=== PATIENT | male | born 1985 | race Caucasian/White ===

== ENCOUNTER 2024-02-26 07:08 | Outpatient (OUT) | payer OTHER, SELFPAY ==
[2024-02-26 07:44] LABS: Basophils Percent Auto 0.5 % (0.2-2.0); Eosinophils Absolute Auto 0.1 10^3/uL (0.0-0.7); Eosinophils Percent Auto 1.9 % (0.9-7.0); Hematocrit 42.1 % (42.0-54.0); Hemoglobin 14.1 g/dL (14.0-18.0); Immature Granulocytes Abs Auto 0.02 10^3/uL (0.00-0.03); Immature Granulocytes Pct Auto 0.3 % (0.0-0.5); Lymphocytes Absolute Auto 2.2 10^3/uL (1.2-3.8); Lymphocytes Percent Auto 28.9 % (20.5-60.0); Mean Corpuscular HGB Conc 33.5 g/dL (29.9-35.2); Mean Corpuscular Hemoglobin 28.8 pg (25.9-34.0); Mean Corpuscular Volume 85.9 fL (80.0-94.0); Mean Platelet Volume 11.2 fL (9.5-13.5); Monocytes Absolute Auto 0.7 10^3/uL (0.3-0.8); Monocytes Percent Auto 8.7 % (1.7-12.0); Neutrophils Absolute Auto 4.5 10^3/uL (1.4-6.5); Neutrophils Percent Auto 59.7 % (43.0-75.0); Platelet Count 256 10^3/uL (150-450); Red Cell Distribution Width 12.3 % (11.0-15.0); White Blood Count 7.6 10^3/uL (4.0-11.0)
[2024-02-26 08:01] LABS: Alanine Aminotransferase 76 U/L (16-63); Albumin Globulin Ratio 1.2; Alkaline Phosphatase 76 U/L (46-116); Anion Gap 11.5; Aspartate Amino Transferase 24 U/L (15-37); BUN Creatinine Ratio 12.8; Bilirubin Total 0.5 mg/dL (0.2-1.0); Calcium 9.2 mg/dL (8.5-10.1); Carbon Dioxide 29.5 mmol/L (21.0-32.0); Chloride 102 mmol/L (98-107); Chol HDL Ratio 3.2; Cholesterol 163 mg/dL (<=200); Estimated GFR (African America >60 (>=60); Estimated GFR (Non-African Ame >60 (>=60); Globulin 3.4 g/dL; Glucose 104 mg/dL (74-106); HDL Cholesterol 51 mg/dL (40-60); LDL Cholesterol Calculated 100.4 mg/dL; Sodium 139 mmol/L (136-145); Thyroid Stimulating Hormone 1.266 uIU/mL (0.358-3.740); Total Protein 7.4 g/dL (6.4-8.2); Triglycerides 58 mg/dL (<=150); VLDL CHOLESTEROL 11.6 mg/dL
== END 2024-02-26 07:09 | disposition home or self-care (01) ==
LOC: LAB 07:12
PROVIDERS: PCP Internal Medicine; Visit Provider Internal Medicine
DX: Z00.00 Encounter for general adult medical examination without abnormal findings (principal)
CPT/HCPCS: 36415; 80053; 80061; 84443; 85025

== ENCOUNTER 2025-03-21 06:59 | Outpatient (OUT) | payer OTHER, SELFPAY ==
--- OUTSIDE RECORDS SUMMARY | 2013-02-03 05:39 | XMS_ITS | Continuity of Care Document ---
Author Organization [facility] Address [address] [place] [address] Phone Care Team Providers Care Telesales Team Leader Name Role Phone MarciConstantine Unavailable Unavailable Allergies, [...] Diagnoses Date Provider Providers Copied on Encounter [facility], [address] [place] [address], [id number], [place] tel:[phone] [facility] No Information Marci Fitch. [address] [place] [address], [id number], [place]. tel:[phone] PREV VISIT, NEW, AGE 12-17 [facility], [address] [place] [address], [id number], [place] tel:[phone] [facility] STI male (chief complaint) Screening examination for venereal disease Marci Fitch. [address] [place] [address], [id number], [place]. tel:[phone] Family History Family Member Type Diagnosis Age At Onset No Information Payers Payer name Insurance type Covered republican ID Authoriza tion(s) No Information Social History [...]
--- OUTSIDE RECORDS SUMMARY | 2025-03-21 07:00 | XMS_ITS | Clinical Summary ---
Author Organization [facility] Address [address] [place] [address] Care Team Providers Care Hair Stylist Name Role Phone Unavailable Primary Care Provider Unavailabl e Social History Tobacco Use Types Packs/Day Years Used Date Smoking Tobacco: Never Assessed Sex and Gender Information Value Date Recorded Sex Assigned at Not on file Legal Sex Male 7:22 PM EDT Gender Identity Not on file Sexual Orientation Not on file Last Filed Vital Signs Vital Sign Reading Time Taken Comments Blood Pressure 122/70 07/20/2020 12:00 PM EDT Pulse - - Temperature - - Respiratory Rate - - Oxygen Saturation - - Inhaled Oxygen Concentration - - Weight 97.1 kg (214 lb) 07/20/2020 12:00 PM EDT Height 175.3 cm (5' 9 ) 07/20/2020 12:00 PM EDT Body Mass Index 31.6 07/20/2020 12:00 PM EDT Plan of Treatment Not on file
--- OUTSIDE RECORDS SUMMARY | 2025-03-21 07:01 | XMS_ITS | CCD ---
Author Organization [facility] Care Team Providers Care Weight Loss Counselor Name Role Phone DR DESHAUN CRISOSTOMO Admitting Unavailable KRANTHI, DR DAWSON Attending Unavailable JACKIE MÉNDEZ Primary Care Unavailable KRANTHI, DR DAWSON Consulting Unavailable KRANTHI, DR DAWSON Admitting Unavailable KRANTHI, DR DAWSON Attending Unavailable KRANTHI, DR DAWSON Primary Care Unavailable KRANTHI, DR DAWSON Consulting Unavailable Mary Snell Unavailable Deshaun Crisostomo Unavailable Allergies Allergy Classification Reported Allergen(s) Allergy Type Date of Onset Reaction(s) Facility (1 source) Penicillin Drug Allergy 0 [facility] (5 sources) Penicillin V Drug Allergy 4 rash [facility] (1 source) Penicillin G Benzathine Allergy to substance 4 Unknown Reaction [facility] (1 source) Penicillins Allergy to substance 4 Unknown Reaction [facility] Medications Current Medications Medication Drug Class(es) Dates Sig (Normalized) Sig (Original) azithromycin 250 mg oral tablet (4 sources) Macrolide Antimicrobial Start: 10-21-2022 Azithromycin 250 MG 2 tablet on the first day, then 1 tablet daily for 4 days Orally Once a day for 5 day(s) Oct, Active LORazepam 0.5 mg oral tablet (5 sources) Benzodiazepine Start: 02-12-2024 take 0.5 mg by mouth once daily Lorazepam Active 0.5 MG PO Daily February 12, 2024 12:00am Start: 11-29-2022 take 1 tablet by ana paula once daily as needed for anxiety LORazepam 0.5 MG 1 Tablet Orally Once a day, as needed for anxiety Nov, Active predniSONE 20 mg oral tablet (4 sources) Start: 10-21-2022 take 1 tablet by mouth every twelve hours predniSONE 20 MG 1 tablet Orally 2 times a day for 5 day(s) 02 August, 2023 Active 24 hr venlafaxine 150 mg extended release oral capsule (6 sources) Serotonin and Norepinephrine Reuptake Inhibitor Start: 02-12-2024 take 1 capsule by mouth once daily at mealtime Venlafaxine Active 0 .ROUTE .COMPLEX February 12, 2024 3:57pm TAKE 1 CAPSULE BY MOUTH ONCE DAILY WITH FOOD Start: 02-12-2024 End: 02-12-2024 take 150 mg by mouth once daily Venlafaxine Discontinu ed 150 MG PO Daily February 12, 2024 12:00am February 12, 2024 3:57pm Start: 11-29-2022 take 1 capsule by mo uth once in the morning Venlafaxine HCl ER 75 MG 1 Capsule Orally q am for 30 days Nov, Active Start: 11-29-2022 take 1 capsule by mo uth once in the morning Venlafaxine HCl ER 37.5 MG 1 Capsule Orally q am for 30 day(s) Nov, Active take 1 capsule by mo uth every twenty-four hours Venlafaxine HCl ER 150 MG 1 capsule with food Orally Once a day for 30 days Active Completed/Discontinued Medications Medication Drug Class(es) Dates Sig (Normalized) Sig (Original) methylPREDNISolone (8 sources) Corticosteroid Start: 06-03-2016 Depo-Medrol 80 mg May, 80 mg Start: 03-26-2015 Depo-Medrol 40 mg Mar, 1.50 mL Problems Active Problems Problem Classification Problem Date Documented Da te Episodic/Chronic Abdominal pain (5 sources) Abdominal pain; Translations: [Unspecified abdominal pain] 10-01-2023 Episodic Anxiety disorders (12 sources) Generalized anxiety disorder; Translations: [Generalized anxiety disorder] Chronic Esophageal disorders (4 sources) Erosive esophagitis; Translations: [Ulcer of esophagus without bleeding] Chronic Gastritis and duodenitis (4 sources) Duodenitis; Translations: [Duodenitis without bleeding] Episodic Miscellaneous mental health disorders (4 sources) Disorders of initiating and maintaining sleep; Translations: [Insufficient sleep syndrome] Chronic Mood disorders (9 sources) Recurrent major depressive episodes, mild ; Translations: [Major depressive disorder, recurrent, mild] Chronic Other nervous system disorders (4 sources) Circadian rhythm sleep disorder of shift work type; Translations: [Circadian rhythm sleep disorder, 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 Other nutritional; endocrine; and metabolic disorders (4 sources) Obese class I; Translations: [Obesity, unspecified] Chronic Other nutritional; endocrine; and metabolic disorders (2 sources) Obesity, unspecified; Translations: [Obesity, unspecified] Chronic Other nutritional; endocrine; and metabolic disorders (1 source) Body mass index 30+ - obesity; Translations: [Body mass index (BMI) 32.0-32.9, adult] Chronic Other nutritional; endocrine; and metabolic disorders (2 sources) Obesity; Translations: [Other obesity due to excess calories] 02-24-2024 Chronic Other nutritional; endocrine; and metabolic disorders (1 source) Other obesity due to excess calories Chronic Other nutritional; endocrine; and metabolic disorders (1 source) Body mass index (BMI) 32.0-32.9, adult Chronic Other nutritional; endocrine; and metabolic disorders (4 sources) Increased body mass index; Translations: [Body mass index (BMI) 29.0-29.9, adult] Episodic Other upper respiratory infections (2 sources) Acute pharyngitis, unspecified; Translations: [Streptococcal pharyngitis] Episodic Residual codes; unclassified (4 sources) Daytime somnolence; Translations: [Other hypersomnia] Chronic Residual codes; unclassified (4 sources) Frequent night waking; Translations: [Insomnia, unspecified] Episodic Residual codes; unclassified (4 sources) Hypnagogic hallucinations; Translations: [Other hallucinations] Episodic Unclassified (3 sources) CONTACT W/AND (SUSP) EXPOS COVID-19; Translations: [CONTACT W/AND (SUSP) EXPOS COVID-19] Onset: 11-21-2021 Past or Other Problems Problem Classification Problem Date Documented Da te Episodic/Chronic Unclassified (1 source) CONTACT W/AND (SUSP) EXPOS COVID-19; Translations: [CONTACT W/AND (SUSP) EXPOS COVID-19] Onset: 11-19-2021 Results Test Name Value Interpretation Reference Range Facil ity Quick Strepon 10-21-2022 S. pyogenes Org specific cx Ql (Throat) Positive [facility] Other Quick Strep [facility] Other Covid-19 PCR (CVDTB)on 10-22 SARS-CoV-2 (COVID-19) RNA ILEANA+probe Ql (Unsp spec) Not detected Normal NOT DETECTED [facility] Comment on above: Result Comment: This test is not yet approved or cleared by the [place] FDA. When there are no FDA-approved or cleared tests available, and other criteria are met, FDA can make tests available under an emergency access mechanism called an Emergency Use Authorization (EUA). The EUA for this test is supported by the [place] of Health and Human Service's (HHS's) declaration that circumstances exist to justify the emergency use of in vitro diagnostics for the detection and/or diagnosis of the virus that causes COVID-19. This EUA will remain in effect (meaning this test can be used) for the duration of the COVID-19 declaration justifying emergency of IVDs, unless it is terminated or revoked by FDA (after which the test may no longer be used). When diagnostic testing is negative, the possibility of a false negative should be considered in the context of a patient's recent exposures and the presence of clinical signs and symptoms consistent with SARS-CoV-2. Performed By: #### C VDTBH #### [facility] [address] [place] [address] Dr. Hollie Guerra CBC AUTO DIFFon 10-31-2021 BASO # 0.0 103/ul Normal 0.0-0.1 [facility] Comment on above: Performed By: #### C BC #### [facility] [address] [place] [address] Dr. Hollie Guerra Basophils/100 WBC (Bld) 0.4 % Normal 0.2-2.0 [facility] Comment on above: Performed By: #### C BC #### [facility] [address] [place] [address] Dr. Hollie Guerra EO # 0.1 103/ul Normal 0.0-0.7 [facility] Comment on above: Performed By: #### C BC #### [facility] [address] [place] [address] Dr. Hollie Guerra Eosinophils/100 WBC (Bld) 1.7 % Normal 0.9-7.0 [facility] Comment on above: Performed By: #### C BC #### [facility] [address] [place] [address] Dr. Hollie Guerra Erythrocyte distribution width (RBC) [Ratio] 12.7 % Normal 11.0-15.0 [facility] Comment on above: Performed By: #### C BC #### [facility] [address] [place] [address] Dr. Hollie Guerra Hematocrit (Bld) [Volume fraction] 44.5 % Normal 42.0-54.0 [facility] Comment on above: Performed By: #### C BC #### [facility] [address] [place] [address] Dr. Hollie Guerra Hemoglobin (Bld) [Mass/Vol] 14.8 g/dL Normal 14.0-18.0 [facility] Comment on above: Performed By: #### C BC #### [facility] [address] [place] [address] Dr. Hollie Guerra IG # 0.02 10e3/ul Normal 0.00-0.03 [facility] Comment on above: Performed By: #### C BC #### [facility] [address] [place] [address] Dr. Hollie Guerra IG % 0.3 % Normal 0.0-0.5 [facility] Comment on above: Performed By: #### C BC #### [facility] [address] [place] [address] Dr. Hollie Guerra LYMPH # 1.7 103/ul Normal 1.2-3.8 [facility] Comment on above: Performed By: #### C BC #### [facility] [address] [place] [address] Dr. Hollie Guerra Lymphocytes/100 WBC (Bld) 24.5 % Normal 20.5-60.0 [facility] Comment on above: Performed By: #### C BC #### [facility] [address] [place] [address] Dr. Hollie Guerra MANUAL DIFF REQ NO Normal [facility] Comment on above: Performed By: #### C BC #### [facility] [address] [place] [address] Dr. Hollie Guerra MCH (RBC) [Entitic mass] 28.8 pg Normal 25.9-34.0 [facility] Comment on above: Performed By: #### C BC #### [facility] [address] [place] [address] Dr. Hollie Guerra MCHC (RBC) [Mass/Vol] 33.3 g/dL Normal 29.9-35.2 [facility] Comment on above: Performed By: #### C BC #### [facility] [address] [place] [address] Dr. Hollie Guerra MCV (RBC) [Entitic vol] 86.7 fL Normal 80.0-94.0 [facility] Comment on above: Performed By: #### C BC #### [facility] [address] [place] [address] Dr. Hollie Guerra MONO # 0.6 103/ul Normal 0.3-0.8 [facility] Comment on above: Performed By: #### C BC #### [facility] [address] [place] [address] Dr. Hollie Guerra Monocytes/100 WBC (Bld) 8.2 % Normal 1.7-12.0 [facility] Comment on above: Performed By: #### C BC #### [facility] [address] [place] [address] Dr. Hollie Guerra NEUT # 4.5 103/ul Normal 1.4-6.5 [facility] Comment on above: Performed By: #### C BC #### [facility] [address] [place] [address] Dr. Hollie Guerra Neutrophils/100 WBC (Bld) 64.9 % Normal 43.0-75.0 [facility] Comment on above: Performed By: #### C BC #### [facility] [address] [place] [address] Dr. Hollie Guerra Platelet mean volume (Bld) [Entitic vol] 10.9 fL Normal 9.5-13.5 [facility] Comment on above: Performed By: #### C BC #### [facility] [address] [place] [address] Dr. Hollie Guerra PLT 269 103/ul Normal 150-450 [facility] Comment on above: Performed By: #### C BC #### [facility] [address] [place] [address] Dr. Hollie Guerra RBC 5.13 106/ul Normal 4.70-6.10 [facility] Comment on above: Performed By: #### C BC #### [facility] [address] [place] [address] Dr. Hollie Guerra WBC 7.0 103/ul Normal 4.0-11.0 [facility] Comment on above: Performed By: #### C BC #### [facility] [address] [place] [address] Dr. Hollie Guerra LIPID PROFILEon 10-31-2021 CHOL-HDL RATIO NORM SEE BELOW Normal [facility] Comment on above: Result Comment: 3.3 - 4.4 LOW RISK 4.4 - 7.1 AVERAGE RISK 7.1 - 11.0 MODERATE RISK >11.0 HIGH RISK Performed By: #### T SH, CMP, LIPID #### [facility] [address] [place] [address] Dr. Hollie Guerra Cholesterol [Mass/Vol] 134 mg/dL Normal <=200 [facility] Comment on above: Performed By: #### T SH, CMP, LIPID #### [facility] [address] [place] [address] Dr. Hollie Guerra Cholesterol in HDL [Mass/Vol] 46 mg/dL Normal [facility] Comment on above: Performed By: #### T SH, CMP, LIPID #### [facility] [address] [place] [address] Dr. Hollie Guerra Cholesterol in LDL [Mass/Vol] 75.6 mg/dL Normal [facility] Comment on above: Performed By: #### T SH, CMP, LIPID #### [facility] [address] [place] [address] Dr. Hollie Guerra Cholesterol.total/ Cholesterol in HDL [Mass ratio] 2.9 {ratio} Normal [facility] Comment on above: Performed By: #### T SH, CMP, LIPID #### [facility] [address] [address] [address] Hollie Guerra HDL NORMAL > or = 60 mg/dl - LOW CARDIOVASCULAR RISK <40 mg/dl - HIGH CARDIOVASCULAR RISK Normal [facility] Comment on above: Performed By: #### T SH, CMP, LIPID #### [facility] [address] [address] [address] Hollie Guerra LDL CALC NORMAL SEE BELOW Normal [facility] Comment on above: Result Comment: <100 mg/dl OPTIMAL 100 - 129 mg/dl NEAR OR ABOVE OPTIMAL 130 - 159 mg/dl BORDERLINE HIGH 160 - 189 mg/dl HIGH >190 mg/dl VERY HIGH Performed By: #### T SH, CMP, LIPID #### [facility] [address] [place] [address] Dr. Hollie Guerra Triglyceride [Mass/Vol] 62 mg/dL Normal <=150 [facility] Comment on above: Performed By: #### T SH, CMP, LIPID #### [facility] [address] [address] [address] Hollie Guerra VLDL CALC 12.4 mg/dL Normal [facility] Comment on above: Performed By: #### T SH, CMP, LIPID #### [facility] [address] [place] [address] Dr. Hollie Guerra PROF 14(COMP METB)on 022 Albumin [Mass/Vol] 4.2 g/dL Normal 3.5-5.0 [facility] Comment on above: Performed By: #### T SH, CMP, LIPID #### [facility] [address] [place] [address] Dr. Hollie Guerra Albumin/Globulin [Mass ratio] 1.3 {ratio} Normal [facility] Comment on above: Performed By: #### T SH, CMP, LIPID #### [facility] [address] [place] [address] Dr. Hollie Guerra ALP [Catalytic activity/Vol] 71 U/L Normal 38-126 [facility] Comment on above: Performed By: #### T SH, CMP, LIPID #### [facility] [address] [place] [address] Dr. Hollie Guerra ALT [Catalytic activity/Vol] 68 U/L Normal 21-72 [facility] Comment on above: Performed By: #### T SH, CMP, LIPID #### [facility] [address] [place] [address] Dr. Hollie Guerra Anion gap [Moles/Vol] 10.0 mmol/L Normal [facility] Comment on above: Performed By: #### T SH, CMP, LIPID #### [facility] [address] [place] [address] Dr. Hollie Guerra AST [Catalytic activity/Vol] 22 U/L Normal 17-59 [facility] Comment on above: Performed By: #### T OJ CMP, LIPID #### [facility] [address] [place] [address] Dr. Hollie Guerra Bilirubin [Mass/Vol] 0.3 mg/dL Normal 0.2-1.3 [facility] Comment on above: Performed By: #### T OJ, CMP, LIPID #### [facility] [address] [place] [address] Dr. Hollie Guerra Calcium [Mass/Vol] 9.2 mg/dL Normal 8.4-10.2 [facility] Comment on above: Performed By: #### T OJ, CMP, LIPID #### [facility] [address] [place] [address] Dr. Hollie Guerra Chloride [Moles/Vol] 105 mmol/L Normal 98-107 [facility] Comment on above: Performed By: #### T OJ, CMP, LIPID #### [facility] [address] [place] [address] Dr. Hollie Guerra CO2 [Moles/Vol] 29.2 mmol/L Normal 22.0-30.0 [facility] Comment on above: Performed By: #### T SH, CMP, LIPID #### [facility] [address] [place] [address] Dr. Hollie Guerra Creatinine [Mass/Vol] 0.75 mg/dL Normal 0.66-1.25 [facility] Comment on above: Performed By: #### T SH, CMP, LIPID #### [facility] [address] [address] [address] Hollie Guerra EGFR-AF ENGLISH >60 Normal >=60 [facility] Comment on above: Performed By: #### T SH, CMP, LIPID #### [facility] [address] [address] [address] Hollie Guerra EGFR-NON AF ENGLISH >60 Normal >=60 [facility] Comment on above: Performed By: #### T SH, CMP, LIPID #### [facility] [address] [address] [address] Hollie Guerra Globulin (S) [Mass/Vol] 3.2 g/dL Normal [facility] Comment on above: Performed By: #### T SH, CMP, LIPID #### [facility] [address] [place] [address] Dr. Hollie Guerra Glucose [Mass/Vol] 93 mg/dL Normal 74-106 [facility] Comment on above: Performed By: #### T SH, CMP, LIPID #### [facility] [address] [address] [address] Hollie Guerra Potassium [Moles/Vol] 4.2 mmol/L Normal 3.4-5.0 [facility] Comment on above: Performed By: #### T SH, CMP, LIPID #### [facility] [address] [address] [address] Hollie Guerra Protein [Mass/Vol] 7.4 g/dL Normal 6.1-8.2 [facility] Comment on above: Performed By: #### T SH, CMP, LIPID #### [facility] [address] [address] [address] Hollie Guerra Sodium [Moles/Vol] 140 mmol/L Normal 137-145 [facility] Comment on above: Performed By: #### T SH, CMP, LIPID #### [facility] [address] [address] [address] Hollie Guerra Urea nitrogen [Mass/Vol] 12.0 mg/dL Normal 9.0-20.0 [facility] Comment on above: Performed By: #### T SH, CMP, LIPID #### [facility] [address] [address] [address] Hollie Guerra Urea nitrogen/Creatinin e [Mass ratio] 16.0 mg/mg Normal [facility] Comment on above: Performed By: #### T SH, CMP, LIPID #### [facility] [address] [address] [address] Hollie Guerra TSHon 10-31-2021 TSH 1.143 uIU/mL Normal 0.470-4.680 [facility] Comment on above: Performed By: #### T SH, CMP, LIPID #### [facility] [address] [address] [address] Hollie Guerra TSH RANGE SEE BELOW Normal [facility] Comment on above: Result Comment: <0.3 4 UIU/ml HYPERTHYROID 0.34-5.60 UIU/ml EUTHYROID >5.60 UIU/ml HYPOTHYROID Performed By: #### T SH, CMP, LIPID #### [facility] [address] [address] [address] Hollie Guerra Vital Signs Date Time Vital Sign Value Performing Clinician Facility 02-24-2024 13:36-0400 Body height 174.63 cm [facility] 02-24-2024 13:36-0400 Body mass index (BMI) [Ratio] 35.5 kg/m2 [facility] 02-24-2024 13:36-0400 Body weight 108.46 kg [facility] 02-24-2024 13:36-0400 Diastolic blood pressure 80 mm[Hg] [facility] 02-24-2024 13:36-0400 Heart rate 80 /min [facility] 02-24-2024 13:36-0400 Respiratory rate 12 /min [facility] 02-24-2024 13:36-0400 Systolic blood pressure 119 mm[Hg] [facility] 03-03-2023 16:15-0400 Body height 174.63 cm Deshaun Ball Other [facility] Other 03-03-2023 16:15-0400 Body mass index (BMI) [Ratio] 32.6 kg/m2 Deshaun Ball Other [facility] Other 03-03-2023 16:15-0400 Body weight 99.43 kg Deshaun Ball Other [facility] Other 03-03-2023 16:15-0400 Diastolic blood pressure 82 mm[Hg] Deshaun Ball Other [facility] Other 03-03-2023 16:15-0400 Respiratory rate 12 /min Deshaun Ball Other [facility] Other 03-03-2023 16:15-0400 Systolic blood pressure 129 mm[Hg] Deshaun Ball Other [facility] Other 11-29-2022 10:00-0500 Body height 174.63 cm Deshaun Ball Other [facility] Other 11-29-2022 10:00-0500 Body mass index (BMI) [Ratio] 33.2 kg/m2 Deshaun Ball Other [facility] Other 11-29-2022 10:00-0500 Body weight 101.24 kg Deshaun Ball Other [facility] Other 11-29-2022 10:00-0500 Diastolic blood pressure 76 mm[Hg] Deshaun Ball Other [facility] Other 11-29-2022 10:00-0500 Respiratory rate 12 /min Deshaun Ball Other [facility] Other 11-29-2022 10:00-0500 Systolic blood pressure 118 mm[Hg] Deshaun Ball Other [facility] Other 10-21-2022 10:15-0500 Body height 174.63 cm Mary Snell Other [facility] Other 10-21-2022 10:15-0500 Body mass index (BMI) [Ratio] 33.91 kg/m2 Mary Snell Other [facility] Other 10-21-2022 10:15-0500 Body temperature 98.4 [degF] Mary Snell Other [facility] Other 10-21-2022 10:15-0500 Body weight 103.42 kg Mary Snell Other [facility] Other 10-21-2022 10:15-0500 Diastolic blood pressure 77 mm[Hg] Mary Snell Other [facility] Other 10-21-2022 10:15-0500 Respiratory rate 18 /min Mary Snell Other [facility] Other 10-21-2022 10:15-0500 SaO2% (BldA) [Mass fraction] 99 % Mary Snell Other [facility] Other 10-21-2022 10:15-0500 Systolic blood pressure 116 mm[Hg] Mary Alis Other [facility] Other Encounters Encounter Date Encounter Type Care Provider Facility Start: 03-09-2025 ambulatory Facility:[facility] Start: 02-24-2024 End: 02-24-2024 ambulatory [facility] Work Phone: Start: 02-24-2024 End: 02-24-2024 Encounter for general adult medical examination without abnormal findings [facility] Start: 02-24-2024 End: 02-24-2024 Patient encounter procedure [facility] Work Phone: Start: 02-12-2024 Non-patient / Non-visit [facility] [employer] Work Phone: Start: 03-03-2023 End: 03-03-2023 ambulatory Deshaun Crisostomo Other [facility] Other Start: 03-03-2023 Office outpatient vi sit 15 minutes Deshaun Crisostomo [facility] Start: 12-30-2022 End: 12-30-2022 ambulatory Deshaun Crisostomo Other [facility] Other Start: 12-30-2022 Telephone encounter Deshaun Crisostomo [facility] Start: 11-29-2022 End: 11-29-2022 ambulatory Deshaun Crisostomo Other [facility] Other Start: 11-29-2022 Office outpatient vi sit 15 minutes Deshaun Crisostomo [facility] Start: 10-21-2022 End: 10-21-2022 ambulatory Mary Snell Other [facility] Other Start: 10-21-2022 Office outpatient vi sit 25 minutes Maryga Snell [facility] Start: 11-19-2021 End: 11-19-[address] DESHAUN CRISOSTOMO Facility:[facility] Start: 11-02-2021 Encounter for genera l adult medical examination without abnormal findings DR DESHAUN CRISOSTOMO [facility] Start: 10-31-2021 End: 11-01-[address] DESHAUN CRISOSTOMO Facility:[facility] Start: 10-31-2021 End: 11-01-2021 Encounter for general adult medical examination without abnormal findings DR DESHAUN CRISOSTOMO Facility:[facility] Plan of Treatment Date Care Activity Detail Author Comprehensive metabo lic 2000 panel - Serum or Plasma [facility] enter [facility] Payers Date Payer Category Payer Self-pay [id number] 1985 Unknown [id number] 1987 Unknown [id number] 1987 Unknown [id number] 1959 Unknown [id number] Private Health Insurance [facility] [id number] Unknown [place] BC/BS [id number] Social History Date Type Detail Facility Unknown if ever smoked [facility] Other Sex Assigned At Sex Assigned At Bir th [facility] Other Start: 02-12-2024 Tobacco smoking status [facility] Never smoked tobacco (finding) [facility] Start: 1985 Sex Assigned At Male F [facility] Evaluation note 03-03-2023 Note Date & Type Note Facility 03-03-2023 Evaluation note Encounter Date Diagnosis Assessment Notes February, DEMARCO (generalized anxiety disorder) (ICD-10 - F41.1) Healthy diet, exercise and keep active. Increasing Effexor to 150mg qd Keep Ativan to 1-2 as needed. February, Other obesity due to excess calories (ICD-10 - E66.09) This patient has been instructed on a low-fat, high-fiber diet. They are instructed to reduce calories, portion sizes and snacks. It is recommended that they exercise for 30 minutes, 3-5 times weekly. February, Mild episode of recurrent major depressive disorder (ICD-10 - F33.0) Improved symptoms w low dose Effexor. Increase to 150mg qd and monitor for now. Job dissatisfactio n: may need new job February, Body mass index [BMI] 32.0-32.9, adult (ICD-10 - Z68.32) [facility] Other Evaluation note 12-30-2022 Note Date & Type Note Facility 12-30-2022 Evaluation note Encounter Date Diagnosis Assessment Notes Dec, Mild episode of recurrent major depressive disorder (ICD-10 - F33.0) [facility] Other Evaluation note 11-29-2022 Note Date & Type Note Facility 11-29-2022 Evaluation note Encounter Date Diagnosis Assessment Notes Nov, DEMARCO (generalized anxiety disorder) (ICD-10 - F41.1) Healthy diet and exercise. Initiate Effexor w/ Ativan for breakthrough anxiety Nov, Obesity (BMI 30.0-34.9) (ICD-10 - E66.9) This patient has been instructed on a low-fat, high-fiber diet. They are instructed to reduce calories, portion sizes and snacks. It is recommended that they exercise for 30 minutes, 3-5 times weekly. Nov, Mild episode of recurrent major depressive disorder (ICD-10 - F33.0) Healthy diet, exercise and keep active. Initiate Effexor [facility] Other Evaluation note 10-21-2022 Note Date & Type Note Facility 10-21-2022 Evaluation note Encounter Date Diagnosis Assessment Notes Oct, Sore throat (ICD-10 - J02.9) Oct, Strep pharyngitis (ICD-10 - J02.0) Pharyngitis/to nsillopharyngi tis: adult home care material was printed Drink plenty fluids, get plenty of rest. Take the Zithromax and prednisone as prescribed until gone. Off work today and tomorrow. Follow-up with your family physician if no improvement in 2 to 3 days. 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 Medical History Hypnagogic hallucinations Medical History Abdominal pain Medical History Erosive esophagitis Medical History Duodenitis Medical History Body mass index (BMI ) of 29.0 to 29.9 in adult Medical History Anxiety with depression Surgical History EGD 11/2017 Surgical History COLONOSCOPY 11/2017 Surgical History appendectomy Hospitalization History SEE SURGICAL HX [facility] Other Summary Purpose Family History No Family History Records Found Relationship Condition Age at Onset Recorded Date/T althea family member Diabetes mellitus Unknown brother Neoplasm of brain Unknown father Unknown grandparent Heart disease Unknown grandparent Diabetes mellitus Unknown Heart disease Unknown Not Specified Malignant neoplasm Unknown Unknown Advance Directives No Advanced Directives Records Found Advance Directive Response Recorded Date/ Time Advance Directives No November 12, 2017 8:25pm Chief Complaint and Reason for Visit Chief Complaint Amb Documentation Wellness Reason for Visit DEMARCO (generalized anx iety disorder) Major depression Obesity Wellness examination Additional Source Comments (unrecognized sect ion and content) No Status Records FoundNo Status Records Found INFORMATION SOURCE (unrecogn ized section and content) DATE CREATED AUTHOR 11/22/2021 [facility] DATE CREATED AUTHOR AUTHOR'S ORGANIZ ATION 03/16/2025 [facility] REASON FOR VISIT (unrecogniz ed section and content) SORE THROATdepression medica tionMedication Change3 month Follow up Care Teams (unrecognized sec tion and content) Team Status: Active Member Role Status Dates Deshaun Crisostomo DO Primary Care Provider Active Team Status: Active Member Role Status Dates Jackie Méndez DNP Primary Care Provider Active Start: February 12, 2024 NICCI Maurer Attending Provider Active Start : February 12, 2024 Team Status: Inactive Member Role Status Dates Deshaun Crisostomo DO Primary Care Provide r, Attending Provider Active Start: February 24, 2024 End: February 24, 2024 Goals (unrecognized section and content) Goals may be documented in a n alternate section FOR RECORDS PERTAINING TO PATIENTS WHO ARE OR HAVE BEEN ENROLLED IN A CHEMICAL DEPENDENCY/SUBSTANCEABUSE PROGRAM, SOME INFORMATION MAY BE OMITTED. This clinical summary was aggregated from multiple sources. Caution should be exercised in using it in the provision of clinical care. This summary normalizes information from multiple sources, and as a consequence, information in this document may materially change the coding, format and clinical context of patient data. In addition, data may be omitted in some cases. CLINICAL DECISIONS SHOULD BE BASED ON THE PRIMARY CLINICAL RECORDS. [facility], [facility]. provides no warranty or guarantee of the accuracy or completeness of information in this document.
[2025-03-21 07:35] LABS: Basophils Percent Auto 0.4 % (0.2-2.0); Eosinophils Absolute Auto 0.2 10^3/uL (0.0-0.7); Eosinophils Percent Auto 2.4 % (0.9-7.0); Hematocrit 42.2 % (42.0-54.0); Hemoglobin 14.6 g/dL (14.0-18.0); Immature Granulocytes Abs Auto 0.01 10^3/uL (0.00-0.03); Immature Granulocytes Pct Auto 0.1 % (0.0-0.5); Lymphocytes Absolute Auto 1.9 10^3/uL (1.2-3.8); Lymphocytes Percent Auto 26.6 % (20.5-60.0); Mean Corpuscular HGB Conc 34.6 g/dL (29.9-35.2); Mean Corpuscular Hemoglobin 29.7 pg (25.9-34.0); Mean Corpuscular Volume 85.9 fL (80.0-94.0); Mean Platelet Volume 11.3 fL (9.5-13.5); Monocytes Absolute Auto 0.6 10^3/uL (0.3-0.8); Monocytes Percent Auto 8.1 % (1.7-12.0); Neutrophils Absolute Auto 4.5 10^3/uL (1.4-6.5); Neutrophils Percent Auto 62.4 % (43.0-75.0); Platelet Count 268 10^3/uL (150-450); Red Blood Count 4.91 10^6/uL (4.70-6.10); Red Cell Distribution Width 12.3 % (11.0-15.0); White Blood Count 7.1 10^3/uL (4.0-11.0)
[2025-03-21 07:48] LABS: Alanine Aminotransferase 65 U/L (16-63); Albumin Globulin Ratio 1.3; Alkaline Phosphatase 78 U/L (46-116); Anion Gap 13.3; Aspartate Amino Transferase 22 U/L (15-37); BUN Creatinine Ratio 14.5; Bilirubin Total 0.2 mg/dL (0.2-1.0); Calcium 8.9 mg/dL (8.5-10.1); Carbon Dioxide 29.6 mmol/L (21.0-32.0); Chloride 103 mmol/L (98-107); Chol HDL Ratio 3.1; Cholesterol 144 mg/dL (<=200); Estimated GFR (African America >60 (>=60 mL/min/1.73m^2); Estimated GFR (Non-African Ame >60 (>=60 mL/min/1.73m^2); Globulin 3.1 g/dL; Glucose 108 mg/dL (74-106); HDL Cholesterol 47 mg/dL (40-60); Potassium 3.9 mmol/L (3.5-5.1); Sodium 142 mmol/L (136-145); Thyroid Stimulating Hormone 1.769 uIU/mL (0.358-3.740); Total Protein 7.1 g/dL (6.4-8.2); Triglycerides 85 mg/dL (<=150)
[2025-03-22 04:09] LABS: Vitamin B12 413 pg/mL (232-1245)
== END 2025-03-21 07:00 | disposition home or self-care (01) ==
LOC: LAB 06:59
PROVIDERS: PCP Internal Medicine; Visit Provider Internal Medicine
DX: Z00.00 Encounter for general adult medical examination without abnormal findings (principal); H81.10 Benign paroxysmal vertigo, unspecified ear
CPT/HCPCS: 36415; 80053; 80061; 82607; 84443; 85025

== ENCOUNTER 2025-09-16 08:24 | Outpatient (OUT) | payer OTHER, SELFPAY ==
--- OUTSIDE RECORDS SUMMARY | 2013-02-03 04:39 | XMS_ITS | Continuity of Care Document ---
Author Organization [facility] Address [address] [place] [address] Phone Care Team Providers Care Seat Joiner Chainstitch Name Role Phone MarciConstantine Unavailable Unavailable Allergies, Adverse Reactions, Alerts Substance Reaction Status Criticality Penicillins Anaphylaxis Active No Information Procedures Procedure Date PREV VISIT, NEW, AGE 12-17 OD SPECIMEN HANDLING (GC/CHLAMYDIA) Jan ROUTINE VENIPUNCTURE HIV-1 Advance Directives Directive Yes / No Effective Date File Name Resuscitation Not Answered N/A N/A Life Support Not Answered N/A N/A Intubation Not Answered N/A N/A Antibiotics Not Answered N/A N/A IV Fluid Support Not Answered N/A N/A Tube Feed Not Answered N/A N/A Other Directive N/A N/A WARNING:The information contained in this section is historical and is provided for information only and does not constitute a legal document or any assurance that the information is still accurate. Please verify the information with the ponce of the legal document before using it for clinical purposes. Encounters Encounter Description Practice Location Reason(s) For Visit Diagnoses Date Provider Providers Copied on Encounter [facility], [address] [place] [address], [id number], [place] tel:[phone] [facility] No Information Marci Fitch. [address] [place] [address], [id number], [place]. tel:[phone] PREV VISIT, NEW, AGE 12-17 [facility], [address] [place] [address], [id number], [place] tel:[phone] [facility] STI male (chief complaint) Screening examination for venereal disease Marci Fitch. [address] [place] [address], [id number], [place]. tel:[phone] Family History Family Member Type Diagnosis Age At Onset No Information Payers Payer name Insurance type Covered libertarian ID Authoriza tion(s) No Information Social History Type Description Quantity Date Captured Comments Alcohol Use Details Unknown Caffeine Use Details Unknown Tobacco Use Status No Information Smoking Status No Information Sex Male Sexual Orientation Straight or heterosexual Chief Complaint And Reason For Visit No Information Reason For Referral Reason For Referral No Information Plan Of Treatment Date Type Action Status Goal H&P. Due on due History Of Present Illness Encounter Date Complaint History Of Prese nt Illness No Information Functional Status Date Functional Assessmen t No Information Instructions Date Instruction Additional Infor alexander Avoid sexual activit y while you await your test results. Related to Screening examination for venereal disease No treatment indicat ed today. Call for test results. Related to Screening examination for venereal disease Assessments Type Assessment Date No Information Patient Care Teams Name Effective Dates (start - stop) Status Members No Information
--- OUTSIDE RECORDS SUMMARY | 2025-09-16 08:29 | XMS_ITS | CCD ---
Author Organization [facility] Care Team Providers Care Bone Char Puller Name Role Phone DR DESHAUN SRIVASTAVA Admitting Unavailable KRANTHI, DR DAWSON Attending Unavailable JACKIE MÉNDEZ Primary Care Unavailable KRANTHI, DR DAWSON Consulting Unavailable KRANTHI, DR DAWSON Admitting Unavailable KRANTHI, DR DAWSON Attending Unavailable KRANTHI, DR DAWSON Primary Care Unavailable KRANTHI, DR DAWSON Consulting Unavailable Mary Snell Unavailable Deshaun Srivastava Unavailable Deshaun Srivastava DO Primary Care Provider [phone] Deshaun Srivastava DO Attending Provider Deshaun Srivastava DO Primary Care Provider [phone] Deshaun Srivastava DO Attending Provider Allergies Allergy ClassificationReported Allergen(s)Allergy TypeDate of OnsetReaction(s) Facility (1 source)PenicillinDrug Eyggssm28-42-1756Qzd [facility] (7 sources)Penicillin VDrug Lttxlpr45-09-2947wmjzYomtijtcaMcKitrick Hospital (3 sources)Penicillin G BenzathineAllergy to jaktxkurc23-37-9727Vqktizo Reaction [facility] (3 sources)PenicillinsAllergy to -26-0330Ptcmnna ReactionMercer County Community Hospital Medications Current Medications MedicationDrug Class(es)DatesSig (Normalized)Sig (Original)azithromycin 250 mg oral tablet (4 sources)Macrolide AntimicrobialStart: 96-28-6220Ilblbsbxsmdn 250 MG 2 tablet on the first day, then 1 tablet daily for 4 days Orally Once a day for5 day(s) Oct, ActiveLORazepam 0.5 mg oral tablet (8 sources)BenzodiazepineStart: 89-21-8170rkom 1 tablet by mouth once daily as needed for anxietyLorazepam 0.5 mg tablet Active 0.5 MG PO Daily as needed for anxiety 05 18June 22, 2025 12:00am Complies with drug therapyStart: 02-12-2024 End: 06-78-1659leaj 1 tablet by mouth once daily as needed for anxietyLorazepam 0.5 mg tablet Discontinued 0.5 MG PO Daily as needed for anxiety February 12, 2024 12:00amMa2024 4:11pmStart: 30-50-2214bevj 1 tablet by mouth once daily as needed for anxietyLORazepam 0.5 MG 1 Tablet Orally Once a day, as needed for anxiety Nov, Activemeclizine hydrochloride 12.5 mg oral tablet (1 source)AntiemeticStart: 45-22-7681Qtlrvpxjl 12.5 mg tablet Active 0 PO 2-4 TIMES PER DAY as needed for dizziness 08 05July 26, 2025 12:00am 1-2 tablets orally 2-4 times per day PRN; Complies with drug therapyondansetron 4 mg disintegrating oral tablet (2 sources)Serotonin-3 Receptor AntagonistStart: 64-64-2072hzch 1 tablet by mouth every eight hours as needed for nausea and vomitingOndansetron 4 mg tablet,disintegrating Active 4 MG PO Every 8 hours as needed for nausea and vomiting 03 24May 18, 2025 12:00am Complies with drug therapypredniSONE 20 mg oral tablet (4 sources)Start: 10-36-1720jjrs 1 tablet by mouth every twelve hourspredniSONE 20 MG 1 tablet Orally 2 times a day for 5 day(s) Oct, Active Completed/Discontinued Medications MedicationDrug Class(es)DatesSig (Normalized)Sig (Original)methylPREDNISolone (8 sources)CorticosteroidStart: 80-50-6900Qwvn-Medrol 80 mg May, 80 mg Start: 63-41-9639Knsq-Medrol 40 mg Mar, 1.50 mL24 hr venlafaxine 37.5 mg extended release oral capsule (18 sources)Serotonin and Norepinephrine Reuptake InhibitorStart: 04-11-2025 End: 21-38-6926stmc 1 capsule by mouth once daily in the morningVenlafaxine 37.5 mg capsule,extended release 24hr Discontinued 37.5 MG PO Every morning April 11, 2025 9:54am May 18, 2025 1:42pmStart: 03-08-2025 End: 70-44-9988bwtz 1 capsule by mouth once daily in the morningVenlafaxine 75 mg capsule,extended release 24hr Discontinued 75 MG PO Every morning February 3:45pm April 11, 2025 9:54amStart: 02-12-2024 End: 84-13-2330nilp 1 capsule by mouth once daily at mealtimeVenlafaxine 150 mg capsule,extended release 24hr Discontinued 0 .ROUTE .COMPLEX February 02, 2025 1:28pm March 08, 2025 3:47pm TAKE 1 CAPSULE BY MOUTH ONCE DAILY WITH FOODStart: 02-12-2024 End: 93-76-5040rtor 1 capsule by mouth once dailyVenlafaxine 150 mg capsule,extended release 24hr Discontinued 150 MG PO Daily February 12, 2024 12:00am February 12, 2024 3:57pmStart: 62-54-0685zctf 1 capsule by mouth once in the morningVenlafaxine HCl ER 75 MG 1 Capsule Orally q am for 30 days Nov, ActiveStart: 16-13-9659misv 1 capsule by mouth once in the morning Venlafaxine HCl ER 37.5 MG 1 Capsule Orally q am for 30 day(s) Nov, Activetake 1 capsule by mouth every twenty-four hoursVenlafaxine HCl ER 150 MG 1 capsule with food Orally Once a day for 30 days Active Problems Active Problems Problem ClassificationProblemDateDocumented DateEpisodic/ChronicAbdominal pain (7 sources)Abdominal pain; Translations: [Unspecified abdominal pain]10-01-2023 EpisodicComment on above:Problem List clean-up per request of Phys. EHR Cmte Anxiety disorders (15 sources)Generalized anxiety disorder; Translations: [Generalized anxiety disorder]ChronicConditions associated with dizziness or vertigo (2 sources)Benign paroxysmal positional vertigo; Translations: [Benign paroxysmal vertigo, unspecified ear]72-84-4636TratavehQwcvcrrnxcnoj and procreative management (1 source)Sterilization requested; Translations: [Encounter for sterilization] 44-85-6992UhrxypeaKyltfbexrf disorders (4 sources)Erosive esophagitis; Translations: [Ulcer of esophagus without bleeding]ChronicGastritis and duodenitis (4 sources)Duodenitis; Translations: [Duodenitis without bleeding]Episodic Miscellaneous mental health disorders (4 sources)Disorders of initiating and maintaining sleep; Translations: [Insufficient sleep syndrome]ChronicMood disorders (12 sources)Recurrent major depressive episodes, mild ; Translations: [Major depressive disorder, recurrent, mild]ChronicNausea and vomiting (2 sources)Nausea and vomiting; Translations: [Nausea with vomiting, unspecified]95-34-2506ZbvfwwpcKddvt liver diseases (2 sources)Enzyme level - finding; Translations: [Transaminasemia]03-21-2025 EpisodicOther nervous system disorders (4 sources)Circadian rhythm sleep disorder of shift work type; Translations: [Circadian rhythm sleep disorder,shift work type]ChronicOther nutritional; endocrine; and metabolic disorders (4 sources)Obese class I; Translations: [Obesity, unspecified]ChronicOther nutritional; endocrine; and metabolic disorders (2 sources)Obesity, unspecified; Translations: [Obesity, unspecified]Chronic Other nutritional; endocrine; and metabolic disorders (1 source)Body mass index 30+ - obesity; Translations: [Body mass index (BMI) 32.0-32.9, adult]ChronicOther nutritional; endocrine; and metabolic disorders (5 sources)Obesity; Translations: [Other obesity due to excess calories] 84-89-6198ElguefrYqxau nutritional; endocrine; and metabolic disorders (1 source)Other obesity due to excess caloriesChronicOther nutritional; endocrine; and metabolic disorders (1 source)Body mass index (BMI) 32.0-32.9, adultChronicOther nutritional; endocrine; and metabolic disorders (4 sources)Increased body mass index; Translations: [Body mass index (BMI) 29.0- 29.9, adult]EpisodicOther upper respiratory infections (2 sources)Acute pharyngitis, unspecified; Translations: [Streptococcal pharyngitis]EpisodicResidual codes; unclassified (4 sources)Daytime somnolence; Translations: [Other hypersomnia]ChronicResidual codes; unclassified (4 sources)Frequent night waking; Translations: [Insomnia, unspecified]Episodic Residual codes; unclassified (4 sources)Hypnagogic hallucinations; Translations: [Other hallucinations] EpisodicSubstance-related disorders (1 source)Other psychoactive substance use, unspecified with withdrawal, unspecified; Translations: [Medication withdrawal]06-09-3545YivsmjfeAmduhxlzruxj (3 sources)CONTACT W/AND (SUSP) EXPOS COVID-19; Translations: [CONTACT W/AND (SUSP) EXPOS COVID-19]Onset: 11-21-2021 Past or Other Problems Problem ClassificationProblemDateDocumented DateEpisodic/ChronicUnclassified (1 source)CONTACT W/AND (SUSP) EXPOS COVID-19; Translations: [CONTACT W/AND (SUSP) EXPOS COVID-19]Onset: 11-19-2021 Results Test NameValueInterpretationReference RangeFacilityProvider Letteron 07-04-2025 Provider LetterProvider Letter July 04, 2025 FAN HERNA[address]DEZ [address] [place] [phone] : 1985 Dear Fan, We have been trying to reach you with no success. It is important that you return our call regarding your referral to our office upon receiving this letter. Also, at the time of your call, please provide us with your current information. Thank you for your prompt attention to this matter. Sincerely, [facility] [address] [place], [place] [address]NzygqcUccqftDoctors HospitalBasophils Auto (Bld) [#/Vol] on 44-58-7285Vabeajhfj (Bld) [#/Vol]0.0 10 3/uL0.0-0.1FCleveland Clinic Medina HospitalBasophils/100 WBC Auto (Bld)on 13-20-9311Ieqplxiog/100 WBC (Bld)0.4 % 0.2-2.0[facility] HospitalCholesterol in LDL Calc [Mass/Vol]on 54-26-9629Fboqjiwietm in LDL [Mass/Vol]80.0 mg/dLMercer County Community HospitalComment on above:<100 mg/dl DWMUOVF583-136 mg/dl NEAR OR ABOVE VXEIRQE519- 159 mg/dl BORDERLINE SGTL187-869 mg/dl HIGH>190 mg/dl VERY HIGHCholesterol in VLDL Calc [Mass/Vol]on 61-42-6672Tcowrbtwxdz in VLDL [Mass/Vol]17.0 mg/dL [facility] HospitalEosinophils/100 WBC Auto (Bld)on 03-21-2025 Eosinophils/100 WBC (Bld)2.4 %0.9-7.0[facility] Erythrocyte distribution width Auto (RBC) [Ratio]on 07-04-0303Xsvqxizvmoo distribution width (RBC) [Ratio]12.3 %11.0-15.0[facility] Estimated glomerular filtration rate (GFR) non- Americanon 03-21-2025 GFR/1.73 sq M.predicted among non-blacks MDRD (S/P/Bld) [Vol rate/Area] mL/min/{1.73_m2}>=60 mL/min/1.73m 2FCleveland Clinic Medina HospitalGlobulin Calc (S) [Mass/Vol]on 39-70-3789Ubjmzrhq (S) [Mass/Vol]3.1 g/dLMercer County Community HospitalHematocrit Auto (Bld) [Volume fraction]on 03-21-2025 Hematocrit (Bld) [Volume fraction]42.2 %42.0-54.0[facility] HospitalHemoglobin [Mass/volume] in Bloodon 57-13-4875Jwhbqwtftm (Bld) [Mass/Vol] 14.6 g/dL14.0-18.0[facility] HospitalLaboratory - Chemistry and Chemistry - challengeon 43-41-6445Lxheeen [Mass/Vol]4.0 g/dL3.4-5.0[facility] HospitalALP [Catalytic activity/Vol]78 U/O47-098KahyvmdhwMercer County Community HospitalALT [Catalytic activity/Vol]65 U/PSybu51-56LbkurcgfnMercer County Community HospitalAST [Catalytic activity/Vol]22 U/F08-39WnpxtoswaMercer County Community HospitalBilirubin [Mass/Vol]0.2 mg/dL0.2-1.0[facility] HospitalCalcium [Mass/Vol]8.9 mg/dL8.5-10.1FC[facility] Clinic [facility] Hospital Chloride [Moles/Vol]103 mmol/P63-491WnmwycesiMercer County Community HospitalCholesterol [Mass/Vol]144 mg/dL<=200Mer[facility] Community HospitalCholesterol in HDL [Mass/Vol]47 mg/dL04-81TkcflwucxMercer County Community HospitalComment on above:> or =60 mg/dl - LOW CARDIOVASCULAR RISK<40 mg/dl - HIGH CARDIOVASCULAR RISKCO2 [Moles/Vol]29.6 mmol/L21.0-32.0[facility] HospitalCobalamin (Vitamin B12) [Mass/Vol]413 pg/yD558-6540QljuyrvogMercer County Community Hospital Comment on above:Performed at: [facility] [address] [id number] Director: Tree Jennings PhD, Phone: [phone] [Mass/Vol]0.76 mg/dL0.70-1.30[facility] Community HospitalGFR/1.73 sq M.predicted MDRD (S/P/Bld) [Vol rate/Area]mL/min/{1.73_m2}>=60 mL/min/1.73m 2 [facility] HospitalGlucose [Mass/Vol]108 mg/xDDlai59-849OebgdhrhwMercer County Community HospitalPotassium [Moles/Vol]3.9 mmol/L3.5-5.1FCleveland Clinic Medina HospitalProtein [Mass/Vol]7.1 g/dL6.4-8.2FC[facility] Sodium [Moles/Vol]142 mmol/N135-861MdkpdustoMercer County Community HospitalTriglyceride [Mass/Vol]85 mg/dL<=150Mer[facility] County Community HospitalTSH Qn1.769 m[IU]/L 0.358-3.740Mer[facility] County Community HospitalUrea nitrogen [Mass/Vol]11.0 mg/dL 7.0-18.0[facility] HospitalUrea nitrogen/Creatinine [Mass ratio] 14.5 mg/mgMercer County Community HospitalLaboratory - Hematology and Cell countson 21-11-5885Riintjsj granulocytes/100 WBC (Bld)0.1 %0.0-0.5FCleveland Clinic Medina HospitalLeukocytes [#/volume] corrected for nucleated erythrocytes in Blood by Automated counon 09-60-8668PNU corrected for nucl RBC Auto (Bld) [#/Vol]7.1 10 3/uL4.0-11.0[facility] Lymphocytes Auto (Bld) [#/Vol]on 26-20-7760Mnreplcouwj (Bld) [#/Vol]1.9 10 3/uL 1.2-3.8[facility] HospitalLymphocytes/100 WBC Auto (Bld)on 98-09-7981Jdbekwtmuun/100 WBC (Bld)26.6 %20.5-60.0[facility] CenterH Auto (RBC) [Entitic mass]on 40-31-7553JZX (RBC) [Entitic mass]29.7 pg 25.9-34.0[facility] HospitalMCHC Auto (RBC) [Mass/Vol]on 74-47-4805HHLH (RBC) [Mass/Vol]34.6 g/dL29.9-35.2FCleveland Clinic Medina HospitalMCV Auto (RBC) [Entitic vol]on 57-26-1131KIA (RBC) [Entitic vol]85.9 fL 80.0-94.0[facility] HospitalMonocytes Auto (Bld) [#/Vol]on 35-53-4500Mtqxwuqqu (Bld) [#/Vol]0.6 10 3/uL0.3-0.8[facility] HospitalMonocytes/100 WBC Auto (Bld)on 58-19-9501Jfrqxzsfb/100 WBC (Bld)8.1 % 1.7-12.0[facility] HospitalNeutrophils Auto (Bld) [#/Vol]on 65-88-4156Ahcyoqxrgjp (Bld) [#/Vol]4.5 10 3/uL1.4-6.5FCleveland Clinic Medina HospitalNeutrophils/100 WBC Auto (Bld)on 84-54-5520Nnzuqbhwrsv/100 WBC (Bld)62.4 % 43.0-75.0[facility] HospitalNo Panel Informationon 03-21-2025 Eosinophils # (Auto)0.2 10 3/uL0.0-0.7FCleveland Clinic Medina HospitalImmature Granulocyte # (Auto)0.01 10 3/uL0.00-0.03[facility] Platelet mean volume Auto (Bld) [Entitic vol]on 76-63-2890Zohdnulh mean volume (Bld) [Entitic vol]11.3 fL9.5-13.5FCleveland Clinic Medina HospitalPlatelets Auto (Bld) [#/Vol]on 61-51-5637Mnpgruhrx (Bld) [#/Vol]268 10 3/wC791-102 [facility] HospitalRBC Auto (Bld) [#/Vol]on 60-82-0046DQX (Bld) [#/Vol]4.91 10 6/uL4.70-6.10[facility] Medical Centererum or plasma albumin/globulin mass ratioon 68-22-6824Ydsaiqp/Globulin [Mass ratio]1.3 {ratio} [facility] Centererum or plasma anion gap determinationon 84-08-7962Rsdtk gap [Moles/Vol]13.3 mmol/LFMercy Health Allen Hospitalerum or plasma total cholesterol/high density lipoprotein (HDL) cholesterol mass rat on 54-89-0467Eirwjaongyn.total/Cholesterol in HDL [Mass ratio]3.1 {ratio} [facility] HospitalComment on above:3.3 - 4.4 LOW RISK4.4 - 7.1 AVERAGE RISK7.1 - 11.0 MODERATE RISK>11.0 HIGH RISKQuick Strepon 10-21-2022S. pyogenes Org specific cx Ql (Throat)PositiveNosaint joseph hospital of [facility] Cardio[employer]otonics Other Quick StrepNoVesocclude Medical CardioPhotonics Other 015-5881Xlfcg-69 PCR (CVDTBH)on 98-25-3358YIDC-CoV-2 (COVID- 19) RNA ILEANA+probe Ql (Unsp spec)Not detectedNormalNOT DETECTEDThe [facility] JacksonComment on above:Result Comment: This test is not yet approved or cleared by the [place] FDA. When there are no FDA-approved or cleared tests available, and other criteria are met, FDA can make tests available under an emergency access mechanism called an Emergency Use Authorization (EUA). The EUA for this test is supported by the Manual Equipment Mechanic of Health and Human Service's (HHS's) declaration [...] of clinical signs and symptoms consistent with SARS-CoV-2.Performed By: #### CVDTBH #### [facility] [address] [place] [address] Dr. Hollie Rebolledo AUTO DIFFon 03-98-5526DDKX #0.0 103/ulNormal0.0-0.1[facility] CenterComment on above:Performed By: #### CBC #### [facility] [address] [place] [address] Dr. Hollie GuerraBasophils/100 WBC (Bld)0.4 %Normal0.2-2.0[facility] Comment on above:Performed By: #### CBC #### [facility] [address] [place] [address] Dr. Hollie Braswell #0.1 103/ulNormal0.0-0.7The [facility] – JacksonComment on above: Performed By: #### CBC #### [facility] [address] [place] [address] Dr. Hollie Porterosinophils/100 WBC (Bld)1.7 %Normal0.9-7.0[facility] Comment on above:Performed By: #### CBC #### [facility] [address] [place] [address] Dr. Hollie Porterrythrocyte distribution width (RBC) [Ratio]12.7 %Gusxhm42.0-15.0 [facility] CenterComment on above:Performed By: #### CBC #### [facility] [address] [place] [address] Dr. Hollie GuerraHematocrit (Bld) [Volume fraction]44.5 %Dffpoa65.0-54.0The [facility] – JacksonComment on above:Performed By: #### CBC #### [facility] [address] [place] [address] Dr. Hollie GuerraHemoglobin (Bld) [Mass/Vol]14.8 g/cWZnvzec03.0-18.0The [facility] – JacksonComment on above:Performed By: #### CBC #### [facility] [address] [place] [address] Dr. Hollie Greene #0.02 10e3/ulNormal0.00-0.03The [facility] – JacksonComment on above:Performed By: #### CBC #### [facility] [address] [place] [address] Dr. Hollie Greene %0.3 %Normal0.0-0.5The [facility] – JacksonComment on above: Performed By: #### CBC #### [facility] [address] [place] [address] Dr. Hollie Rosenbaum #1.7 103/ulNormal1.2-3.8The [facility] – JacksonComment on above:Performed By: #### CBC #### [facility] [address] [place] [address] Dr. Hollie Nieveshocytes/100 WBC (Bld)24.5 %Lpljht02.5-60.0The [facility] – JacksonComment on above:Performed By: #### CBC #### [facility] [address] [place] [address] Dr. Hollie ManriqueUAL DIFF REQNONormalThe [facility] – JacksonComment on above: Performed By: #### CBC #### [facility] [address] [place] [address] Dr. Hollie Kearns (RBC) [Entitic mass]28.8 suDwachd26.9-34.0The [facility] – JacksonComment on above:Performed By: #### CBC #### [facility] [address] [place] [address] Dr. Hollie Orr (RBC) [Mass/Vol]33.3 g/pOBxiaxx91.9-35.2The [facility] – JacksonComment on above:Performed By: #### CBC #### [facility] [address] [place] [address] Dr. Hollie Espinal (RBC) [Entitic vol]86.7 tBLrznur26.0-94.0The [facility] – JacksonComment on above:Performed By: #### CBC #### [facility] [address] [place] [address] Dr. Hollie Griffin #0.6 103/ulNormal0.3-0.8The [facility] – JacksonComment on above:Performed By: #### CBC #### [facility] [address] [place] [address] Dr. Hollie Lordocytes/100 WBC (Bld)8.2 %Normal1.7-12.0The [facility] Comment on above:Performed By: #### CBC #### [facility] [address] [place] [address] Dr. Hollie Otto #4.5 103/ulNormal1.4-6.5The [facility] – JacksonComment on above:Performed By: #### CBC #### [facility] [address] [place] [address] Dr. Hollie Ramosutrophils/100 WBC (Bld)64.9 %Cntmox24.0-75.0The [facility] – JacksonComment on above:Performed By: #### CBC #### [facility] [address] [place] [address] Dr. Hollie Severinolet mean volume (Bld) [Entitic vol]10.9 fLNormal9.5-13.5The [facility] – JacksonComment on above:Performed By: #### CBC #### [facility] [address] [place] [address] Dr. Hollie SnyderT269 103/juMihfih409-737Jap [facility] JacksonComment on above: Performed By: #### CBC #### [facility] [address] [place] [address] Dr. Hollie GuerraRBC5.13 106/ulNormal4.70-6.10The [facility] – JacksonComment on above:Performed By: #### CBC #### [facility] [address] [address] [address] Hollie GuerraWBC7.0 103/ulNormal4.0-11.0[facility] CenterComment on above: Performed By: #### CBC #### [facility] [address] [address] [address] Hollie MarxID PROFILEon 17-18-0924BDRD-HDL RATIO NORMSEE [facility] HospitalComment on above:Result Comment: 3.3 - 4.4 LOW RISK 4.4 - 7.1 AVERAGE RISK 7.1 - 11.0 MODERATE RISK >11.0 HIGH RISKPerformed By: #### TSH, CMP, LIPID #### [facility] [address] [address] [address] Hollie Harringtonesterol [Mass/Vol]134 mg/dLNormal<=200[facility] Comment on above:Performed By: #### TSH, CMP, LIPID #### [facility] [address] [address] [address] Hollie Harringtonesterol in HDL [Mass/Vol]46 mg/dLSelect Medical [facility] [place] Comment on above:Performed By: #### TSH, CMP, LIPID #### [facility] [address] [address] [address] Hollie Harringtonesterol in LDL [Mass/Vol]75.6 mg/dLSelect Medical [facility] Clinic [facility] Hospital, BeachwoodComment on above:Performed By: #### TSH, CMP, LIPID #### [facility] [address] [address] [address] Hollie Alvarez.total/Cholesterol in HDL [Mass ratio]2.9 {ratio} NormalAdena Fayette Medical CenterComment on above:Performed By: #### TSH, CMP, LIPID #### [facility] [address] [address] [address] Hollie Pinon NORMAL> or = 60 mg/dl - LOW CARDIOVASCULAR RISK <40 mg/dl - HIGH CARDIOVASCULAR RISKSelect Medical [facility], BeachwoodComment on above:Performed By: #### TSH, CMP, LIPID #### [facility] [address] [place] [address] Dr. Hollie Louis CALC NORMALSEE BELOWSelect Medical [facility] Clinic Rehabilitation Hospital, BeachwoodComment on above:Result Comment: <100 mg/dl OPTIMAL 100 - 129 mg/dl NEAR OR ABOVE OPTIMAL 130 - 159 mg/dl BORDERLINE HIGH 160 - 189 mg/dl HIGH >190 mg/dl VERY HIGH Performed By: #### TSH, CMP, LIPID #### [facility] [address] [address] [address] Hollie GuerraTriglyceride [Mass/Vol]62 mg/dLNormal<=150The [facility] Comment on above:Performed By: #### TSH, CMP, LIPID #### [facility] [address] [place] [address] Dr. Hollie GuerraVLDL CALC12.4 mg/dLNoWestern Reserve HospitalComment on above: Performed By: #### TSH, CMP, LIPID #### [facility] [address] [place] [address] Dr. Hollie Villalpando 14(COMP METB)on 04-57-5794Dzpctcw [Mass/Vol]4.2 g/dLNormal 3.5-5.0The [facility] on above:Performed By: #### TSH, CMP, LIPID #### [facility] [address] [place] [address] Dr. Hollie GuerraAlbumin/Globulin [Mass ratio]1.3 {ratio}NormalThe [facility] – JacksonComcorewell health lud[facility] on above:Performed By: #### TSH, CMP, LIPID #### [facility] [address] [place] [address] Dr. Hollie Lui [Catalytic activity/Vol]71 U/BAibodt81-268Xon [facility] on above:Performed By: #### TSH, CMP, LIPID #### [facility] [address] [address] [address] Hollie Gregory [Catalytic activity/Vol]68 U/HOztdre84-54Tgb [facility] JacksonComment on above:Performed By: #### TSH, CMP, LIPID #### [facility] [address] [address] [address] Hollie Waggoneron gap [Moles/Vol]10.0 mmol/LNormalAdena [facility] Center Comment on above:Performed By: #### TSH, CMP, LIPID #### [facility] [address] [address] [address] Hollie GuerraAST [Catalytic activity/Vol]22 U/ORwmdfz73-78Kle [facility] – JacksonComment on above:Performed By: #### TSH, CMP, LIPID #### [facility] [address] [address] [address] Hollie GuerraBilirubin [Mass/Vol]0.3 mg/dLNormal0.2-1.3TParkview Health [facility] Comment on above:Performed By: #### TSH, CMP, LIPID #### [facility] [address] [place] [address] Dr. Hollie GuerraCalcium [Mass/Vol]9.2 mg/dLNormal8.4-10.2[facility] Comment on above:Performed By: #### TSH, CMP, LIPID #### [facility] [address] [place] [address] Dr. Hollie GuerraChloride [Moles/Vol]105 mmol/UMyegsh75-730LsrAdena F[facility] Medical Center Comment on above:Performed By: #### TSH, CMP, LIPID #### [facility] [address] [address] [address] Hollie GuerraCO2 [Moles/Vol]29.2 mmol/ZLczaiz76.0-30.0[facility] Comment on above:Performed By: #### TSH, CMP, LIPID #### [facility] [address] [place] [address] Dr. Hollie GuerraCreatinine [Mass/Vol]0.75 mg/dLNormal0.66-1.25The [facility] JacksonComment on above:Performed By: #### TSH, CMP, LIPID #### [facility] [address] [place] [address] Dr. Hollie PorterGFR-AF RWANDAN>60Normal>=60[facility] JacksonComment on above:Performed By: #### TSH, CMP, LIPID #### [facility] [address] [address] [address] Hollie PorterGFR-NON AF RWANDAN>60Normal>=60[facility] JacksonComment on above:Performed By: #### TSH, CMP, LIPID #### [facility] [address] [address] [address] Hollie GuerraGlobulin (S) [Mass/Vol]3.2 g/dLNormalThe [facility] JacksonComment on above:Performed By: #### TSH, CMP, LIPID #### [facility] [address] [address] [address] Hollie GuerraGlucose [Mass/Vol]93 mg/iOEwscah07-252XybAdena Fayette Medical Center Comment on above:Performed By: #### TSH, CMP, LIPID #### [facility] [address] [place] [address] Dr. Hollie GuerraPotassium [Moles/Vol]4.2 mmol/LNormal3.4-5.0[facility] Comment on above:Performed By: #### TSH, CMP, LIPID #### [facility] [address] [place] [address] Dr. Hollie GuerraProtein [Mass/Vol]7.4 g/dLNormal6.1-8.2[facility] Comment on above:Performed By: #### TSH, CMP, LIPID #### [facility] [address] [place] [address] Dr. Hollie GuerraSodium [Moles/Vol]140 mmol/OYyhjmu343-515NiiAdena Fayette Medical Center Comment on above:Performed By: #### TSH, CMP, LIPID #### [facility] [address] [place] [address] Dr. Hollie GuerraUrea nitrogen [Mass/Vol]12.0 mg/dLNormal9.0-20.0[facility] JacksonComment on above:Performed By: #### TSH, CMP, LIPID #### [facility] [address] [address] [address] Hollie GuerraUrea nitrogen/Creatinine [Mass ratio]16.0 mg/mgSelect Medical Cleveland Clinic Rehabilitation Hospital, BeachwoodComment on above:Performed By: #### TSH, CMP, LIPID #### [facility] [address] [address] [address] Hollie Galvan 28-11-6248EDN0.143 uIU/mLNormal0.470-4.680[facility] CenterComment on above:Performed By: #### TSH, CMP, LIPID #### [facility] [address] [address] [address] Hollie Avendano [facility] HospitalComment on above: Result Comment: <0.34 UIU/ml HYPERTHYROID 0.34-5.60 UIU/ml EUTHYROID >5.60 UIU/ml HYPOTHYROIDPerformed By: #### TSH, CMP, LIPID #### [facility] [address] [address] [address] Hollie Guerra Vital Signs Date TimeVital SignValuePerforming RqyjcdgkaUklwdrqd28-60-7457 15:47-0400Body qetxrl380.63 cmBenjamin Ball DO Work Phone: [phone]10-07-2025 15:47-0400 Body mass index (BMI) [Ratio]33.6 kg/n4Vxxbpjfv Ball DO Work Phone: [phone] [place], [place] 9546110-07-2025 15:47-0400 Body kesovf529.68 kgBenjamin Ball DO Work Phone: [phone] [place], [place] 9546110-07-2025 15:47-0400 Diastolic blood webwbesr347 mm[Hg]Deshaun Ball DO Work Phone: [phone]10-07-2025 15:47-0400 Heart rate58 /minBenjamin Ball DO Work Phone: [phone])323-[address] [place], [place] 9546110-07-2025 15:47-0400 Respiratory rate12 /minBenjamin Ball DO Work Phone: [phone])[address] [place], [place] 5764210-07-2025 15:47-0400 Systolic blood nhmstodc404 mm[Hg]Deshaun Ball DO Work Phone: [phone])[address] [place], [place] 5764207-30-2025 13:46-0400 Body keoqkt804.63 cmBenjamin Ball DO Work Phone: [phone])[address] [place], [place] 5764207-30-2025 13:46-0400 Body mass index (BMI) [Ratio]34.2 kg/k7Wlhyplbc Ball DO Work Phone: 1419)[address] [place], [place] 5764207-30-2025 13:46-0400 Body mtuyzv096.55 kgBenjamin Ball DO Work Phone: [phone])[address] [place], [place] 5764207-30-2025 13:46-0400 Diastolic blood ynlnnyxi68 mm[Hg]Deshaun Ball DO Work Phone: 1419)[address] [place], [place] 5764207-30-2025 13:46-0400 Heart rate59 /minBenjamin Ball DO Work Phone: [phone])[address] [place], [place] 5764207-30-2025 13:46-0400 Respiratory rate12 /minBenjamin Ball DO Work Phone: 1(415)[address] [place], [place] 5764207-30-2025 13:46-0400 Systolic blood mm[Hg]Deshaun Ball DO Work Phone: 1(419)[address] [place], [place] 5764205-20-2025 15:22-0400 Body wjcrag466.63 cmBenjamin Ball DO Work Phone: [phone])[address] [place], [place] 5764205-20-2025 15:22-0400 Body mass index (BMI) [Ratio]35.2 kg/x0Gowosjth Ball DO Work Phone: 1419)[address] [place], [place] 5764205-20-2025 15:22-0400 Body .61 kgBenjamin Ball DO Work Phone: [phone])[address] [place], [place] 5764205-20-2025 15:22-0400 Diastolic blood mm[Hg]Deshaun Ball DO Work Phone: [facility]05-20-2025 15:22-0400 Heart rate73 /minBenjamin Ball DO Work Phone: [facility]05-20-2025 15:22-0400 Respiratory rate12 /minBenjamin Ball DO Work Phone: [facility]05-20-2025 15:22-0400 Systolic blood mm[Hg]Deshaun Ball DO Work Phone: [facility]05-07-2024 13:36-0400 Body .63 cmMercer County Community Hospital05-07-2024 13:36-0400Body mass index (BMI) [Ratio]35.5 kg/l1LeroxiykvMercer County Community Hospital05-07-2024 13:36-0400Body .46 kgMercer County Community Hospital05-07-2024 13:36-0400Diastolic blood ubwuwxly46 mm[Hg][facility] 02-24-2024 13:36-0400Heart rate80 /[facility] 02-24-2024 13:36-0400Respiratory rate12 /[facility] 02-24-2024 13:36-0400Systolic blood clpocmvd205 mm[Hg][facility]05-15-2023 16:15-0400Body mwjjyp092.63 cmBenjamin Ball Other [employer] Other 05-15-2023 16:15-0400Body mass index (BMI) [Ratio]32.6 kg/u1Kfrfndmq Ball Other [employer] Other 05-15-2023 16:15-0400Body .43 kgBenjamin Ball Other [employer] Other 05-15-2023 16:15-0400Diastolic blood mm[Hg] Deshaun Ball Other [employer] Other 05-15-2023 16:15-0400Respiratory rate12 /minBenjamin Ball Other [employer] Other 05-15-2023 16:15-0400Systolic blood topwylch369 mm[Hg] Deshaun Ball Other [employer] Other 02-10-2023 10:00-0500Body otrxdx846.63 cmBenjamin Ball Other [employer] Other 02-10-2023 10:00-0500Body mass index (BMI) [Ratio]33.2 kg/w6Vuijsfww Ball Other [employer] Other 02-10-2023 10:00-0500Body gtyoev972.24 kgBenjamin Ball Other [employer] Other 02-10-2023 10:00-0500Diastolic blood idlixwew74 mm[Hg] Deshaun Ball Other [employer] Other 02-10-2023 10:00-0500Respiratory rate12 /minBenjamin Ball Other [employer] Other 02-10-2023 10:00-0500Systolic blood lbypbhsh650 mm[Hg] Deshaun Ball Other [employer] Other 01-02-2023 10:15-0500Body wvurtb199.63 cmPamela Alis Other [facility] [employer] Other 01-02-2023 10:15-0500Body mass index (BMI) [Ratio] 33.91 kg/f2VsuyswMary Snell Other [employer] Other 01-02-2023 10:15-0500Body .4 [degF]Mary Aguilamond Other [employer] Other 01-02-2023 10:15-0500Body webfvo606.42 kgMary Snell Other [employer] Other 01-02-2023 10:15-0500Diastolic blood lztahksu90 mm[Hg] Mary Alis Other [employer] Other 01-02-2023 10:15-0500Respiratory rate18 /minMary Snell Other [employer] Other 01-02-2023 10:15-7371AkU7% (BldA) [Mass fraction]99 % Mary Aguilamond Other [employer] Other 01-02-2023 10:15-0500Systolic blood expgiolc995 mm[Hg] Mary Alis Other [employer] Other Encounters Encounter DateEncounter TypeCare ProviderFacilityStart: 07-26-2025 End: 21-36-9134uwqwfuptuqKaxphfai Ball DO Work Phone: [facility] Work Phone: Start: 07-26-2025 End: 64-01-4040Bjaersq encounter procedureBenjamin Ball DO-[facility] Work Phone: Start: 05-18-2025 End: 68-18-5115lepxjqxeexGnwxymll Ball DO Work Phone: [facility] Work Phone: Start: 05-18-2025 End: 04-83-9766Ihhaenr encounter procedureBearisteo Srivastava DO-[facility] Work Phone: Start: 90-90-8634Jlh-patient / Non-visitBearisteo Srivastava DO-[facility] [employer] Work Phone: Start: 23-78-8421wesjgxrcizKliktddx:[place]kyStart: 03-08-2025 End: 47-60-6131Uwiebzd encounter procedureBearisteo Srivastava DO-[facility] Work Phone: Start: 03-08-2025 End: 22-66-5378Ntdeaxy encounter statusBearisteo Srivastava [facility]: 02-24-2024 End: 32-92-5417xvjeslreohOmssmcneoC[facility] Work Phone: Start: 02-24-2024 End: 40-23-8825Zhewzrksf for general adult medical examination without abnormal findingsAdena Fayette Medical Centertart: 02-24-2024 End: 56-40-4905Oulabkd encounter procedureLifebrite [facility] Work Phone: Start: 06-64-2424Hle-patient / Non-visitLifebrite [facility]-[place] [employer] Work Phone: Start: 03-03-2023 End: 68-63-0294lwapdwmefrAmwbmbcy Ball Other [facility] [employer] Other Start: 82-42-2463Atfybt outpatient visit 15 minutes Deshaun Jermain Srivastava [facility] ClinicStart: 12-30-2022 End: 62-93-8954hgfhcencshOvrlonic Ball Other [facility] [employer] Other Start: 55-44-3960Tyxcxnkni encounterBearisteo Srivastava Medical ClinicStart: 11-29-2022 End: 49-33-5583tdyeymbceiRdkxdort Ball Other [facility] [employer] Other Start: 04-71-6529Cdxeip outpatient visit 15 minutes Deshaun Srivastava [facility] ClinicStart: 10-21-2022 End: 78-75-3544glrswlueiyHezgkn Dymond Other [facility] [employer] Other Start: 99-62-0077Tttyiq outpatient visit 25 minutes Mary [facility] ClydeStart: 11-19-2021 End: 64-88-7914oskaxqepagZN DESHAUN SRIVASTAVAFacility:O0Wppbw: 04-75-1053Hfyuolmhn for general adult medical examination without abnormal findingsDR DESHAUN SRIVASTAVA [facility] Hospitaltart: 10-31-2021 End: 91-56-7948gbdipfwtkgBS DESHAUN SRIVASTAVAFacility:H5Fhpph: 10-31-2021 End: 67-73-3155Drhbxbqel for general adult medical examination without abnormal findingsDR DESHAUN KRANTHIFacility:H1 Plan of Treatment DateCare ActivityDetailAuthorComprehensive metabolic 1999 panel - Serum or [facility] HospitalCom[facility] metabolic 1999 panel - Serum or [facility]in [facility] Payers DatePayer CategoryPayerPolicy [id number]-cnu [id number] Health InsuranceFostoria City [id number] UnknownAnthem BC/[id number] Social History DateTypeDetailFacilityUnknown if ever smokedHaverhill [facility] Other [facility] At [facility] At [facility] [employer] Other Start: 02-12-2024 End: 16-64-0870Vekiqdi smoking status NHISNever smoked tobacco (finding) [facility] Centertart: 59-62-5724Ted Assigned At [facility] HospitalexMale (finding)[facility] Evaluation note 05-18-2025 Note Date & MgxeDlwmRiilcdwl70-60-3706 Evaluation note* Diagnosis Onset Date Resolution Status Admit Date Medication withdrawal noneactiveJuly 2024 1:40pmNauseanoneactiveJuly 2024 1:40pm [facility] Work Phone: Evaluation note 03-08-2025 Note Date & IaclYdgiIgofumtd30-55-5870 Evaluation note* Diagnosis Onset Date Resolution Status Admit Date DEMARCO (generalized anxiety disorder) acuteMay 2024 3:15pmMajor depressionacuteMay 2024 3:15pmObesityacute May 2024 3:15pmWellness examinationnoneactiveMay 2024 3:15pmRequest for sterilizationnoneactiveMay 2024 3:15pm [facility] Work Phone: Evaluation note 03-03-2023 Note Date & KlagWbmfAnpxjcfi93-25-9456 Evaluation note* Encounter Date Diagnosis Assessment Notes Treatment Notes Treatment Clinical Notes February, DEMARCO (generalized anxiety disorde r) (ICD-10 - F41.1) Healthy diet, exercise and keep active. Increasing Effexor to 150mg qd Keep Ativan to 1-2 as needed. February,Other obesity due to excess calories (ICD-10 - E66.09)This patient has been instructed on a low-fat, high-fiber diet. They are instructed to reduce calories, portion sizes and snacks. It is recommended that they exercise for 30 minutes, 3-5 times weekly. 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 Increase to 150mg qd and monitor for now. Job dissatisfaction: may need new job February,ody mass index [BMI] 32.0-32.9, adult (ICD-10 - Z68.32) [employer] Other Evaluation note 12-30-2022 Note Date & JwqgZgyvIzzhviwy39-35-3326 Evaluation note* Encounter Date Diagnosis Assessment Notes Treatment Notes Treatment Clinical Notes Dec, Mild episode of recu rrent major depressive disorder (ICD-10 - F33.0) [facility] Other Evaluation note 11-29-2022 Note Date & YnotXincMkrsylbn07-71-2283 Evaluation note* Encounter Date Diagnosis Assessment Notes Treatment Notes Treatment Clinical Notes Nov, DEMARCO (generalized anxiety disorde r) (ICD-10 - F41.1) Healthy diet and exercise. Initiate Effexor w/ Ativan for breakthrough anxiety Nov,Obesity (BMI 30.0-34.9) (ICD-10 - E66.9)This patient has been instructed on a low-fat, high-fiber diet. They are instructed to reduce calori es, portion sizes and snacks. It is recommended that they exercise for 30 minutes, 3-5 times weekly. 10 Nov, 2022Mild episode of recurrent major depressive disorder (ICD-10 - F33.0) Healthy diet, exercise and keep active. Initiate Effexor [facility] Other Evaluation note 10-21-2022 Note Date & WzjmEuhvJgyhminn98-40-4248 Evaluation note* Encounter Date Diagnosis Assessment Notes Treatment Notes Treatment Clinical Notes Oct, Sore throat (ICD-10 - J02.9) Oct,Strep pharyngitis (ICD-10 - J02.0)Pharyngitis/tonsillopharyngitis: adult home care material was printed Drink plenty fluids, get plenty of rest. Take the Zithromax and prednisone as prescribed until gone. Off work today and tomorrow. Follow-up with your family physician if no improvement in 2 to 3 days. [employer] Other Evaluation note Note Date & TypeNoteFacilityEvaluation note* Diagnosis Onset Date Resolution Status DEMARCO (generalized anxiety disorder) acuteMajor depressionacuteObesityacuteWellness examinationnoneactive [facility] Work Phone: History general Narrative - Reported Note Date & TypeNoteFacilityHistory general Narrative - Reported* Type Description Date Medical History Excessive daytime sleepiness Medical HistoryFrequent nocturnal awakeningMedical HistoryBehaviorally induced insufficient sleep syndromeMedical HistoryShift work sleep disorderMedical HistoryHypnagogic hallucinationsMedical HistoryAbdominal painMedical History Erosive esophagitisMedical HistoryDuodenitisMedical HistoryBody mass index (BMI) of 29.0 to 29.9 in adultMedical HistoryAnxiety with depressionSurgical History EGD2/2018Surgical HistoryCOLONOSCOPY2Surgical Historyappendectomy Hospitalization HistorySEE SURGICAL HX [employer] [facility] Other Reason for referral (narrative) Note Date & TypeNoteFacilityReason for referral (narrative)No reason for referral information availableAdena [facility] Center Work Phone: Summary Purpose Family History Relationship Condition Age at Onset Recorded Date/T althea family member Diabetes mellitus Unknown brotherNeoplasm of brainUnknownfatherDeceasedUnknowngrandparentHeart disease UnknowngrandparentDiabetes mellitusUnknownHeart diseaseUnknownNot Specified Malignant neoplasmUnknownDeceasedUnknown Relationship Condition Age at Onset Recorded Date/T althea aunt Diabetes mellitus Unknown brotherNeoplasm of brainUnknownfatherDeceasedUnknowngrandparentHeart disease UnknowngrandparentDiabetes mellitusUnknownHeart diseaseUnknownmotherMalignant neoplasmUnknownDeceasedUnknown Advance Directives Advance Directive Response Recorded Date/ Time Advance Directives No November 12, 2017 8:25pm Chief Complaint and Reason for Visit Chief Complaint Amb Documentation WellnessReason for VisitGAD (generalized anxiety disorder) Major depression Obesity Wellness examination Chief Complaint Admit Date Wellness March 08, 2025 3:15p m Work Note May 18, 2025 1:40 pm Reason for Visit Admit Date DEMARCO (generalized anxiety disorder) February 182024 3:15pm Major depression March 08, 2025 3:15p m Obesity March 08, 2025 3:15p m Wellness examination March 08, 2025 3:15 pm Request for sterilization March 08, 2025 3:15pm Chief Complaint Admit Date Work Note May 18, 2025 1:40 pm dizziness/work note July 26, 2025 3: 37pm Reason for Visit Admit Date Medication withdrawal May 18, 2025 1: 40pm Nausea May 18, 2025 1:40 pm Additional Source Comments (unrecognized sect ion and content) No Status Records FoundNo Status Records Found INFORMATION SOURCE (unrecogn ized section and content) DATE CREATED AUTHOR 11/22/2021 [facility] DATE CREATED AUTHOR AUTHOR'S ORGANIZ ATION 07/05/2025 [facility] REASON FOR VISIT (unrecogniz ed section and content) SORE THROATdepression medica tionMedication Change3 month Follow up Care Teams (unrecognized sec tion and content) Team Status: Active Member Role Status Dates Deshaun Srivastava DO Primary Care Provider Active Team Status: Inactive Member Role Status Dates Deshaun Srivastava DO Primary Care Provider Active Start: March 08, 2025 End: March 08Angel Schaffer ProviderActiveStart: March 08, 2025 End: March 08, 2025 Team Status: Active Member Role Status Dates Deshaun Srivastava DO Primary Care Provider Active Start: March 21, 2025 Angel Leyva ProviderActiveStart: March 21, 2025 Team Status: Inactive Member Role Status Dates Deshaun Srivastava DO Primary Care Provider Active Start: May 18, 2025 End: May 18Angel Schaffer ProviderActiveStart: May 18, 2025 End: May 18, 2025 Team Status: Active Member Role Status Dates Jackie Méndez DNP Primary Care Provider Active Start: February 12, 2024 Karen Maurer ProviderActiveStart: February 12, 2024 Team Status: Inactive Member Role Status Dates Deshaun Srivastava DO Primary Care Provide r, Attending Provider Active Start: February 24, 2024 End: February 24, 2024 Team Status: Inactive Member Role Status Dates Deshaun Srivastava DO Primary Care Provider Active Start: July 26, 2025 End: July 26everton Srivastava DOAttending ProviderActiveStart: July 26, 2025 End: July 26, 2025 Goals (unrecognized section and content) Goals may [...] BE BASED ON THE PRIMARY CLINICAL RECORDS. [facility] [employer] provides no warranty or guarantee of the accuracy or completeness of information in this document.
--- OUTSIDE RECORDS SUMMARY | 2025-09-16 08:29 | XMS_ITS | Clinical Summary ---
Author Organization [facility] Address [address] [place] [address] Care Team Providers Care [employer] Name Role Phone Unavailable Primary Care Provider Unavailabl e Social History Tobacco UseTypesPacks/DayYears UsedDateSmoking Tobacco: Never AssessedSex and Gender InformationValueDate RecordedSex Assigned at BirthNot on fileLegal Sex Male01/01/2023 7:22 PM EDTGender IdentityNot on fileSexual OrientationNot on file Last Filed Vital Signs Vital SignReadingTime TakenCommentsBlood Lgljaoux854/7010 12:00 PM EDT Pulse--Temperature--Respiratory Rate--Oxygen Saturation--Inhaled Oxygen Concentration--Xbfzba24.1 kg (214 lb)07/20/2020 12:00 PM NXMMfrfxa873.3 cm (5' 9 )07/20/2020 12:00 PM EDTBody Mass Index31. 12:00 PM EDT Plan of Treatment Not on file
[2025-09-16 09:20] LABS: Alanine Aminotransferase 110 U/L (16-63); Albumin Globulin Ratio 1.1; Albumin Level 3.7 g/dL (3.4-5.0); Alkaline Phosphatase 80 U/L (46-116); Aspartate Amino Transferase 34 U/L (15-37); Globulin 3.3 g/dL; Total Protein 7.0 g/dL (6.4-8.2)
== END 2025-09-16 08:25 | disposition home or self-care (01) ==
LOC: LAB 08:26
PROVIDERS: PCP Internal Medicine; Visit Provider Internal Medicine
DX: R74.01 Elevation of levels of liver transaminase levels (principal)
CPT/HCPCS: 36415; 80076